=== PATIENT | male | born 1985 | race African-American/Black ===

== ENCOUNTER 2016-11-23 00:17 | Emergency (ER) | payer MEDICAID, OTHER ==
[~2016-11-23 00:17] MED LIST: LORTA5 PO
[2016-11-23 00:21] VITALS: BP 126/83; PULSE 77; RESP 16; TEMP 98.5; O2SAT 98
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
[2016-11-23] MEDS ORDERED: NAPR500 PO (01:49)
[2016-11-23] MEDS ORDERED: CYCL1TAB29 PO (01:49)
== END 2016-11-23 02:58 | disposition home or self-care (01) ==
LOC: NEPD 00:17
DX: M54.5 Low back pain (principal); M54.2 Cervicalgia; Z79.899 Other long term (current) drug therapy; F17.200 Nicotine dependence, unspecified, uncomplicated
CPT/HCPCS: 99283